=== PATIENT | male | born 1960 ===

== ENCOUNTER 2020-09-06 21:07 | Inpatient (IN) | payer MEDICARE, OTHER, SELFPAY ==
[2020-09-06 21:21] VITALS: BP 117/80; PULSE 110; RESP 20; TEMP 36.7; O2SAT 95; BMI 41.5
[2020-09-06 21:49] LABS: Add Urine Microscopic? NO
[2020-09-06 21:50] VITALS: BP 116/96; BP 117/80; PULSE 100; PULSE 99; RESP 16; O2SAT 97; O2SAT 98
[2020-09-06 22:02] LABS: Amphetamines Screen Urine Negative (Negative); Barbiturates Screen Urine Negative (Negative); Benzodiazepines Screen Urine Negative (Negative); Cocaine Screen Urine Negative (Negative); Opiate Screen Urine Negative (Negative); PCP Screen Urine Negative (Negative); THC Screen Urine Negative (Negative)
[2020-09-06 22:09] LABS: Alanine Aminotransferase 20 U/L (0-41); Alcohol Level 142 mg/dL (0-10); Alkaline Phosphatase 50 IU/L (40-130); Anion Gap 12.7 (5-19); Aspartate Amino Transferase 24 U/L (0-40); Blood Urea Nitrogen 8 mg/dL (6-20); Carbon Dioxide 31 mmol/L (22-29); Chloride 103 mmol/L (98-107); Globulin 2.4 g/dL (1.3-4.6); Glomerular Filtration Rate 99.6 mL/min (90-130); Glucose 93 mg/dL (65-115); Osmolality Calculated 294 mOsm/kg (285-295); Potassium 3.7 mmol/L (3.5-5.1); Sodium 143 mmol/L (136-145); Total Bilirubin 0.3 mg/dL (0.15-1.2); Total Protein 6.4 g/dL (6.6-8.7)
[2020-09-06 22:10] LABS: Acetaminophen < 5.0 ug/mL (10-30); Salicylate < 0.3 mg/dL (3-10)
[2020-09-06 22:10] LABS: Bilirubin Urine Neg (Negative); Blood Urine Neg (Negative); Glucose Urine UA Norm (Normal); Ketones Urine Negative (Negative); Leukocyte Esterase Urine Negative (Negative); Nitrate Urine Negative (Negative); Protein Urine Neg (Negative); Urine Appearance Clear (CLEAR); Urine Color Yellow (Yellow); Urobilinogen Urine Norm (Negative); pH Urine 5 (5-7)
[2020-09-06 22:11] LABS: Basophils % 0.4 %; Eosinophils # 0.2 10^3/uL (0.0-0.8); Eosinophils % 3.9 %; Hematocrit 43.4 % (42.0-52.0); Hemoglobin 14.8 g/dL (11.7-16.6); Lymphocytes # 1.2 10^3/uL (0.8-4.8); Lymphocytes % 22.2 %; Mean Corpuscular HGB Conc 34.1 g/dL (30.0-36.0); Mean Corpuscular Hemoglobin 31.5 pg (28.0-34.0); Mean Corpuscular Volume 92.3 fL (80-94); Mean Platelet Volume 11.6 fL (7.4-10.4); Monocytes # 0.6 10^3/uL (0.2-0.9); Monocytes % 10.6 %; Neutrophils # 3.23 10^3/uL (1.8-7.7); Neutrophils % 62.3 %; Nucleated Red Blood Cells % 0 %; Platelet Count 145 10^3/cmm (130-400); Red Cell Distribution Width 15.9 % (12.1-15.1); White Blood Count 5.2 10^3/uL (4.0-10.0)
[2020-09-06 22:41] LABS: Calcium 9.1 mg/dL (8.5-10.5)
[2020-09-06 22:45] VITALS: BP 139/109; PULSE 89; RESP 16; O2SAT 97
--- NOTE | 2020-09-06 22:52 | PC.NURSE ---
Called report to [facility]
[2020-09-06 23:00] VITALS: BP 132/96; PULSE 100; RESP 17; TEMP 36.9; O2SAT 96
[2020-09-06 23:02] VITALS: RESP 18
[2020-09-06 23:15] VITALS: BP 129/92; PULSE 80; RESP 18; TEMP 37.1; O2SAT 98
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
--- NOTE | 2020-09-07 01:03 | PC.NURSE ---
Addendum entered by Li Funk RN 09/07/20 01:05: Pt is mildly diaphoretic, tremors seen/felt with arms extended, pt states he has a headache and is beginning to feel nauseated and experience visual disturbance/sensitivity Original Note: ciwa 11 on admit
[2020-09-07] MEDS: LORazepam 2 mg Tablet PO ×2 (01:31→22:58)
--- NOTE | 2020-09-07 01:52 | PC.NURSE ---
Ciwa 4 Pt received 2mg PO ativan at 0131. He has responded well, He is resting, no longer trembling, reports decrease in symptoms. Pt is resting
--- NOTE | 2020-09-07 02:39 | PC.NURSE ---
Skin assessment revealed no wounds or injuries. His toe nails are raised above the nail bed, yellow/brown, darkened, possibly caused by fungus.
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
[2020-09-07 06:00] VITALS: BP 153/91; PULSE 111; RESP 18; TEMP 36.7; O2SAT 97
[2020-09-07] MEDS: folic acid 1 mg Tablet PO (09:54)
[2020-09-07] MEDS: pantoprazole DR 40 mg Tablet PO (09:54)
[2020-09-07] MEDS: FUROsemide 40 mg Tablet PO ×2 (09:54→16:55)
[2020-09-07] MEDS: thiamine 100 mg Tablet PO (09:54)
[2020-09-07] MEDS: venlafaxine ER (24HR) 150 mg Capsule PO (09:54)
[2020-09-07] MEDS: potassium chloride ER 20 mEq Tablet PO ×2 (09:54→16:55)
[2020-09-07] MEDS: multivitamin therapeutic Tablet 1 TAB PO (09:54)
[2020-09-07 09:55] VITALS: PULSE 111
[2020-09-07] MEDS: ferrous sulfate EC 325 mg Tablet PO (09:55)
[2020-09-07] MEDS: digoxin 250 mcg Tablet PO (09:55)
[2020-09-07] MEDS: carvedilol 12.5 mg Tablet PO ×2 (09:56→16:55)
[2020-09-07] MEDS: sacubitril/valsartan 24-26 mg Tablet 1 EACH PO ×2 (09:56→16:55)
--- NOTE | 2020-09-07 10:00 | PC.NURSE ---
INFLUENZA VACCINE 1 SINGLE DOSE GIVEN IM IN LEFT DELTOID. PT EDUCATED ON MED GIVEN & VERBALIZED UNDERSTANDING. LOT [id number] EXP 02/26/21
[2020-09-07 14:00] VITALS: BP 109/78; PULSE 89; RESP 18; TEMP 37.1
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
[2020-09-07 20:10] VITALS: BP 149/89; PULSE 103; RESP 18; TEMP 36.8; O2SAT 94
--- NOTE | 2020-09-07 20:51 | PC.NURSE ---
CIWA 7 Pt is mildly diaphoretic, experiencing mild tremors with eyes shut and arms extended, there is increased anxiety, and is restless.
--- NOTE | 2020-09-07 21:32 | PC.NURSE ---
PM ASSESSMENT CIWA 7 ON INITIAL PM ASSESSMENT. PT DENIES HI/SI, DENIES AH/VH, PT DENIES PAIN GREATER THAN BASELINE OF 3 ON A SCALE OF 1-10. PT EXPRESSED HIS WISHES TO HAVE MORE ATIVAN IF HE EXPERIENCES ANY FURTHER ALCOHOL WITHDRAWL SYMPTOMS. PT LUNG SOUNDS ARE DIMINISHED BILATERALLY IN THE BASES BUT ARE MUCH IMPROVED IN THE UPPER LOBES. BLOOD PRESSURE IS ELEVATED 149/89 WITH PULSE RATE OF 103 AT REST. WILL CONTINUE TO MONITOR PT FOR ANY SIGNS OF INFECTION/DISTRESS. pT HAS HX OF CHF.
--- NOTE | 2020-09-07 22:46 | PC.NURSE ---
CIWA 10 PT IS EXPERIENCING MODERATE HEADACHE, SENSITIVITY TO LIGHT/SOUND, MILDLY DIAPHORETIC, BILATERAL ARMS EXTENDED WITH EYES SHUT AND PALMS UP REVEAL INCREASED TREMOR THAT IS VISIBLE TO NURSE. PT REQUESTED MEDICATION.
[2020-09-07] MEDS: ibuprofen 800 mg tablet PO (22:57)
--- NOTE | 2020-09-08 00:05 | PC.NURSE ---
FOLLOWUP CIWA PT WAS EBONY RATED 10. MEDICATION GIVEN 2MG PO ATIVAN AND 800 iBPROPHEN FOR HEADACHE BY MED NURSE. EBONY RESCORED A 5 AT THIS TIME
[2020-09-08 05:47] VITALS: BMI 41.5
[2020-09-08 06:00] VITALS: BP 157/84; PULSE 100; RESP 18; TEMP 36.9; O2SAT 90
[2020-09-08] MEDS: venlafaxine ER (24HR) 150 mg Capsule PO (08:29)
[2020-09-08] MEDS: ferrous sulfate EC 325 mg Tablet PO (08:29)
[2020-09-08] MEDS: carvedilol 12.5 mg Tablet PO ×2 (08:29→17:10)
[2020-09-08 08:30] VITALS: PULSE 120
[2020-09-08] MEDS: folic acid 1 mg Tablet PO (08:30)
[2020-09-08] MEDS: pantoprazole DR 40 mg Tablet PO (08:30)
[2020-09-08] MEDS: potassium chloride ER 20 mEq Tablet PO ×2 (08:30→17:10)
[2020-09-08] MEDS: sacubitril/valsartan 24-26 mg Tablet 1 EACH PO ×2 (08:30→17:10)
[2020-09-08] MEDS: thiamine 100 mg Tablet PO (08:30)
[2020-09-08] MEDS: FUROsemide 40 mg Tablet PO ×2 (08:30→17:10)
[2020-09-08] MEDS: multivitamin therapeutic Tablet 1 TAB PO (08:30)
[2020-09-08] MEDS: digoxin 250 mcg Tablet PO (08:30)
[2020-09-08 14:00] VITALS: BP 118/84; PULSE 107; RESP 16; TEMP 36.8; O2SAT 96
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
[2020-09-08 19:48] VITALS: BP 121/91; PULSE 96; RESP 20; TEMP 36.8; O2SAT 95
[2020-09-08] MEDS: zolpidem 5 mg Tablet PO (20:51)
[2020-09-09] MEDS: ibuprofen 800 mg tablet PO ×2 (04:37→20:11)
[2020-09-09 06:00] VITALS: BP 129/95; PULSE 110; RESP 20; TEMP 36.2; O2SAT 94
[2020-09-09] MEDS: multivitamin therapeutic Tablet 1 TAB PO (07:53)
[2020-09-09] MEDS: carvedilol 12.5 mg Tablet PO ×2 (07:54→17:43)
[2020-09-09] MEDS: sacubitril/valsartan 24-26 mg Tablet 1 EACH PO ×2 (07:54→17:43)
[2020-09-09] MEDS: FUROsemide 40 mg Tablet PO ×2 (07:54→17:43)
[2020-09-09] MEDS: venlafaxine ER (24HR) 150 mg Capsule PO (07:54)
[2020-09-09] MEDS: folic acid 1 mg Tablet PO (07:55)
[2020-09-09] MEDS: thiamine 100 mg Tablet PO (07:55)
[2020-09-09] MEDS: pantoprazole DR 40 mg Tablet PO (07:55)
[2020-09-09] MEDS: potassium chloride ER 20 mEq Tablet PO ×2 (07:55→17:43)
[2020-09-09] MEDS: ferrous sulfate EC 325 mg Tablet PO (07:55)
[2020-09-09 07:56] VITALS: PULSE 99
[2020-09-09] MEDS: digoxin 250 mcg Tablet PO (07:56)
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
[2020-09-09 14:00] VITALS: BP 112/78; PULSE 105; RESP 16; TEMP 36.6; O2SAT 95
[2020-09-09] MEDS: haloperidol 5 mg Tablet PO (20:10)
[2020-09-09] MEDS: zolpidem 5 mg Tablet PO (20:11)
[2020-09-09 21:54] VITALS: BP 105/79; PULSE 69; RESP 20; TEMP 36.8; O2SAT 95
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
[2020-09-10 06:00] VITALS: BP 110/80; PULSE 72; RESP 16; TEMP 36.9; O2SAT 95
[2020-09-10] MEDS: FUROsemide 40 mg Tablet PO ×2 (08:28→16:46)
[2020-09-10] MEDS: carvedilol 12.5 mg Tablet PO ×2 (08:28→16:47)
[2020-09-10] MEDS: sacubitril/valsartan 24-26 mg Tablet 1 EACH PO ×2 (08:28→16:46)
[2020-09-10 08:29] VITALS: PULSE 74
[2020-09-10] MEDS: potassium chloride ER 20 mEq Tablet PO ×2 (08:29→16:46)
[2020-09-10] MEDS: thiamine 100 mg Tablet PO (08:29)
[2020-09-10] MEDS: folic acid 1 mg Tablet PO (08:29)
[2020-09-10] MEDS: ferrous sulfate EC 325 mg Tablet PO (08:29)
[2020-09-10] MEDS: venlafaxine ER (24HR) 150 mg Capsule PO (08:29)
[2020-09-10] MEDS: pantoprazole DR 40 mg Tablet PO (08:29)
[2020-09-10] MEDS: digoxin 250 mcg Tablet PO (08:29)
[2020-09-10] MEDS: multivitamin therapeutic Tablet 1 TAB PO (08:29)
[2020-09-10] MEDS: pneumococcal (23 valent) SDV 0.5 mL IM (08:33)
--- NOTE | 2020-09-10 08:35 | PC.NURSE ---
PNEUMONIA VACCINE 1 DOSE 0.5 ML GIVEN IM IN RIGHT DELTOID. PT EDUCATED ON MED GIVEN & VERBALIZED UNDERSTANDING. WILL CONT TO MONITOR INJECTION SITE FOR SWELLING OR IRRITATION. LOT [id number] EXP 06/01/21
--- NOTE | 2020-09-10 09:23 | PC.SOCIAL ---
Important Medicare Message Reviewed page 2 Important Medicare Message with patient and updated copy provided and placed in chart.
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
[2020-09-10 14:09] VITALS: PULSE 74
== END 2020-09-10 16:49 | disposition home or self-care (01) | DRG 885 ==
LOC: ER 22:05 → NP 22:45
PROVIDERS: Admitting Provider Psychiatry & Neurology Psychiatry; Emergency Provider Emergency Medicine; Visit Provider Psychiatry & Neurology Psychiatry
DX: F32.2 Major depressive disorder, single episode, severe without psychotic features (principal); Z68.41 Body mass index [BMI] 40.0-44.9, adult; F10.920 Alcohol use, unspecified with intoxication, uncomplicated; R45.850 Homicidal ideations; Z81.8 Family history of other mental and behavioral disorders; I50.9 Heart failure, unspecified; E66.9 Obesity, unspecified
CPT/HCPCS: 12345; 80053; 80306; 80307; 81003; 85025; 90471; 90686; 90732; 99284

== ENCOUNTER → 2022-05-27 14:31 | Outpatient (BNVA) | payer OTHER, SELFPAY | PROVIDERS: PCP Internal Medicine; Visit Provider Specialist | DX: G62.89 Other specified polyneuropathies (principal) | CPT/HCPCS: 95909; 95911 ==